=== PATIENT | male | born 1955 | race Caucasian/White ===

== ENCOUNTER 2019-03-28 22:03 | Emergency (ER) | payer BC, MEDICARE ==
[2019-03-28] MEDS ORDERED: NORMAL SALINE 500 ML IV ONE (23:07)
--- NOTE | 2019-03-28 23:08 | ER Document Report ---
ED General - General Chief Complaint: Diarrhea Stated Complaint: DIARRHEA Time Seen by Provider: 03/28/19 23:02 Primary Care Provider: PEPE CHANDRA NP [Primary Care Provider] - Follow up in 3-5 days Notes: Patient is a pleasant 64-year-old male who presents with complaint of diarrhea for 5 days. He was seen at [facility] yesterday and the nurse practitioner gave him a stool collection kit. He did bring in stool with him today. He denies any fevers. No vomiting. No travel outside the country. No blood in his stool. No recent antibiotic use in the last month. The only pets they have at home are cats. No farm animals. No drinking well water. No recent camping or outdoor activities. TRAVEL OUTSIDE OF THE [place] IN LAST 30 DAYS: No - Related Data Allergies/Adverse Reactions: No Known Allergies Allergy (Unverified 04/26/12 19:40) Past Medical History - Social History Smoking Status: Never Smoker Frequency of alcohol use: None Drug Abuse: None Family History: Reviewed & Not Pertinent Endocrine Medical History: Reports: Hx Diabetes Mellitus Type 2 - Immunizations Hx Diphtheria, Pertussis, Tetanus Vaccination: No Review of Systems - Review of Systems Notes: My Normal Review Basic REVIEW OF SYSTEMS: CONSTITUTIONAL : Denies fever, chills, or sweats. Denies recent illness. EENT: Denies eye, ear, throat, or mouth pain or symptoms. Denies nasal or sinus congestion. RESPIRATORY: Denies cough, cold, or chest congestion. Denies shortness of breath, difficulty breathing, or wheezing. GASTROINTESTINAL: Intermittent crampy abdominal pain. Diarrhea. MUSCULOSKELETAL: Denies neck or back pain or joint pain or swelling. SKIN: Denies rash or skin lesions. NEUROLOGICAL: Denies altered mental status or loss of consciousness. Denies headache. Denies weakness or paralysis or loss of use of either side. Denies problems with gait or speech. Denies sensory or motor loss. ALL OTHER SYSTEMS REVIEWED AND NEGATIVE. Physical Exam - Vital signs Vitals: Temp Pulse Resp BP Pulse Ox 98.1 F 95 16 136/84 H 93 03/28/19 22:49 03/28/19 22:49 03/28/19 22:49 03/28/19 22:49 03/28/19 22:49 - Notes Notes: General Appearance: Well nourished, alert, cooperative, no acute distress, no obvious discomfort. Well-appearing. Vitals: reviewed, See vital signs table. Head: no swelling or tenderness to the head Eyes: PERRL, EOMI, Conjuctiva clear Mouth: No decreasd moisture Lungs: No wheezing, No rales, No rhonci, No accessory muscle use, good air exchange bilaterally. Heart: Normal rate, Regular rythm, No murmur, no rub Abdomen: Normal BS, soft, No rigidity, No abdominal tenderness to palpation, No guarding, no rebound, no abdominal masses, no organomegaly Extremities: good pulses in all extremities, no swelling or tenderness in the extremities Skin: warm, dry, appropriate color, no rash Neuro: speech clear, oriented x 3, normal affect, responds appropriately to questions. Course - Re-evaluation Re-evalutation: 03/29/19 04:10 Patient has been having diarrhea now for 6 days. Some nausea but no vomiting. No blood in stool. No fevers. Run prescription prescription for azithromycin. Informed if he still having diarrhea tomorrow then he should fill the prescription and started being that this will be 7 days of diarrhea with no improvement. His stool has been sent for culture. I have given them culture callback number. He has mild renal insufficiency and therefore given some IV fluids and encourage him to follow-up with his doctor Sunday for reevaluation and recheck. I encouraged him return to ER immediately if he has blood in stool, fevers, vomiting, or feels that he is worsening in any way. Patient agrees with plan and will be discharged home. Dictation of this chart was performed using voice recognition software; th erefore, there may be some unintended grammatical errors. - Vital Signs Vital signs: Temp Pulse Resp BP Pulse Ox 98 F 86 18 132/76 H 98 03/29/19 03:03 03/29/19 03:03 03/29/19 03:03 03/29/19 03:03 03/29/19 03:03 - Laboratory Result Diagrams: 03/29/19 00:15 03/29/19 00:15 Laboratory results interpreted by me: 03/29/19 03/29/19 00:15 00:15 WBC 11.1 H RBC 5.66 H BUN 25 H Creatinine 1.76 H Est GFR ( Amer) 47 L Est GFR (Non-Af Amer) 39 L Glucose 134 H Discharge - Discharge Clinical Impression: Diarrhea, Renal insufficiency, mild Condition: Good Disposition: HOME, SELF-CARE Additional Instructions: I have sent your stool for culture. It will take a few days before your stool grows out any form of bacteria. Please call the culture callback number Sunday after lunch if you are have not already heard back from the hospital. The culture callback phone number is [phone]. Your serum creatinine was just slightly elevated. Serum creatinine is a measure of your kidney function. Your serum creatinine today was 1.73. Please have your doctor recheck this level on Sunday or Sunday to make sure it is not worsening. Please take the antibiotic as prescribed. Please return to the ER immediately if you have fevers, vomiting, severe abdominal pain, bloody stools, or feel that you are worsening in any way. Prescriptions: RX: Azithromycin 500 mg PO DAILY #3 tablet Dicyclomine HCl [Bentyl 20 mg Tablet] 20 mg PO TID PRN #15 tablet PRN Reason: Referrals: PEPE CHANDRA NP [Primary Care Provider] - Follow up in 3-5 days
[2019-03-29 00:28] LABS: ABSOLUTE BASOPHILS # (AUTO) 0.1 10^3/uL (0.0-0.2); ABSOLUTE EOSINOPHILS # (AUTO) 0.1 10^3/uL (0.0-0.6); ABSOLUTE LYMPHOCYTES (AUTO) 1.9 10^3/uL (0.5-4.7); ABSOLUTE NEUT (AUTO) 7.9 10^3/uL (1.7-8.2); BASOPHILS % (AUTO) 0.9 % (0-2); EOSINOPHILS % (AUTO) 1.2 % (0-6); HEMATOCRIT 49.8 % (37.9-51.0); LYMPHOCYTES % (AUTO) 16.9 % (13-45); MEAN CORPUSCULAR HGB CONC 34.1 g/dL (32.0-36.0); MEAN CORPUSCULAR VOLUME 88 fl (80-97); MONOCYTES % (AUTO) 9.4 % (3-13); PLATELET COUNT 216 10^3/uL (150-450); RED BLOOD COUNT 5.66 10^6/uL (4.35-5.55); SEGMENTED NEUTROPHILS % (AUTO) 71.6 % (42-78); TOTAL CELLS COUNTED % (AUTO) 100 %; WHITE BLOOD COUNT 11.1 10^3/uL (4.0-10.5)
[2019-03-29 00:48] LABS: ALANINE AMINOTRANSFERASE 51 U/L (21-72); ALBUMIN 4.5 g/dL (3.5-5.0); ALKALINE PHOSPHATASE 62 U/L (38-126); ANION GAP 14 (5-19); ASPARTATE AMINO TRANSFERASE 24 U/L (17-59); BILIRUBIN,DIRECT 0.3 mg/dL (0.0-0.4); BILIRUBIN,TOTAL 0.7 mg/dL (0.2-1.3); BLOOD UREA NITROGEN 25 mg/dL (7-20); CALCIUM 9.5 mg/dL (8.4-10.2); CARBON DIOXIDE 22 mmol/L (22-30); CHLORIDE 101 mmol/L (98-107); GLUCOSE 134 mg/dL (75-110); POTASSIUM 4.6 mmol/L (3.6-5.0); TOTAL PROTEIN 7.6 g/dL (6.3-8.2)
[2019-03-29] MEDS ORDERED: NORMAL SALINE 500 ML IV ONE (01:38)
[2019-03-29] MEDS ORDERED: SIMETHICONE 80 MG TAB.CHEW PO ONE (02:03)
[2019-03-29] MEDS ORDERED: DICYCLOMINE HCL 20 MG TABLET PO ONE (02:03)
[2019-03-29 03:04] VITALS: BP 132/76
== END 2019-03-29 03:03 | disposition home or self-care (01) ==
LOC: ER 22:03
DX: R19.7 Diarrhea, unspecified (principal); N28.9 Disorder of kidney and ureter, unspecified; E11.9 Type 2 diabetes mellitus without complications
CPT/HCPCS: 99284; 96360; 36415; 87045; 87205; 83735; 85025; 80053; 87493; A9270 ×2; J7040; J3490

== ENCOUNTER 2020-04-29 07:17 | Day surgery (SDC) | payer BC, MEDICARE ==
[~2020-04-29 07:17] MED LIST: CHONDR SU A NA/HYALUR INTRAOC KIT (SURGICARE) ONE; EPINEPHRINE INJ/PF 1 MG/1 ML AMPULE ONE; KETOROLAC TROMETHAMINE 0.45% 4 DROP/0.4 ML DROPERETTE OD PRN; LIDOCAINE 1%/PHENYLEPHRINE 1.5% 1 ML VIAL ONE
[2020-04-29] MEDS: CYCLOPENTOLATE 0.2%/PHENYLEPHRINE 1% OPH SOLN 2 ML OD PRN ×3 (08:04→08:25)
[2020-04-29] MEDS: TROPICAMIDE 1% OPH SOLN 15 ML OD PRN ×3 (08:04→08:25)
[2020-04-29] MEDS: BESIFLOXACIN HCL 0.6% OPH SUSP 5 ML BOTTLE OD PRN ×4 (08:04→08:58)
[2020-04-29] MEDS: TETRACAINE HCL 0.5% OPH SOLN 4 ML OD PRN ×3 (08:04→08:40)
[2020-04-29] MEDS: DORZOLAMIDE HCL 2%/TIMOLOL MALEAT 0.5% OPH SOLN 10 ML OD PRN ×2 (08:51→08:58)
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
== END 2020-04-29 09:41 | disposition home or self-care (01) ==
LOC: SC 07:17
PROVIDERS: ATTEND Internal Medicine
DX: H25.13 Age-related nuclear cataract, bilateral (principal); E11.9 Type 2 diabetes mellitus without complications; I10 Essential (primary) hypertension; G47.33 Obstructive sleep apnea (adult) (pediatric); Z87.891 Personal history of nicotine dependence; Z79.84 Long term (current) use of oral hypoglycemic drugs; Z79.899 Other long term (current) drug therapy
CPT/HCPCS: 66984; 82962; J3490 ×2; J0171; V2632

== ENCOUNTER 2020-05-20 07:06 | Day surgery (SDC) | payer BC ==
[~2020-05-20 07:06] MED LIST changes: -CHONDR SU A NA/HYALUR INTRAOC KIT (SURGICARE) ONE; -EPINEPHRINE INJ/PF 1 MG/1 ML AMPULE ONE; -KETOROLAC TROMETHAMINE 0.45% 4 DROP/0.4 ML DROPERETTE OD PRN; +KETOROLAC TROMETHAMINE 0.45% 4 DROP/0.4 ML DROPERETTE OS PRN; -LIDOCAINE 1%/PHENYLEPHRINE 1.5% 1 ML VIAL ONE
[2020-05-20] MEDS ORDERED: MIDAZOLAM 2 MG/2 ML INJ ONE (07:28)
[2020-05-20] MEDS: BESIFLOXACIN HCL 0.6% OPH SUSP 5 ML BOTTLE OS PRN ×4 (08:10→09:03)
[2020-05-20] MEDS: TROPICAMIDE 1% OPH SOLN 15 ML OS PRN ×3 (08:10→08:30)
[2020-05-20] MEDS: CYCLOPENTOLATE 0.2%/PHENYLEPHRINE 1% OPH SOLN 2 ML OS PRN ×3 (08:10→08:30)
[2020-05-20] MEDS: TETRACAINE HCL 0.5% OPH SOLN 4 ML OS PRN ×3 (08:11→08:37)
[2020-05-20] MEDS ORDERED: PHENYLEPHRINE/KETOROLAC 1%-0.3% 4 ML VIAL ONE (08:23)
[2020-05-20] MEDS ORDERED: LIDOCAINE 1% INJ-PF (10 MG/ML) 30 ML SDV ONE (08:23)
[2020-05-20] MEDS ORDERED: CHONDR SU A NA/HYALUR INTRAOC KIT (SURGICARE) ONE (08:24)
[2020-05-20] MEDS: DORZOLAMIDE HCL 2%/TIMOLOL MALEAT 0.5% OPH SOLN 10 ML OS PRN ×2 (09:03)
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
== END 2020-05-20 09:44 | disposition home or self-care (01) ==
LOC: SC 07:06
PROVIDERS: ATTEND Internal Medicine
DX: H25.12 Age-related nuclear cataract, left eye (principal); E11.9 Type 2 diabetes mellitus without complications; I10 Essential (primary) hypertension; Z87.891 Personal history of nicotine dependence; Z79.84 Long term (current) use of oral hypoglycemic drugs; Z79.899 Other long term (current) drug therapy; Z96.1 Presence of intraocular lens
CPT/HCPCS: 66984; 82962; J2250; J3490 ×3; J1097